=== PATIENT | female | born 1950 | race Caucasian/White ===

== ENCOUNTER 2017-07-12 20:04 | Observation (INO) ==
--- NOTE | 2017-07-12 20:31 | Emergency Department Note ---
Disposition Clinical Impression: Syncope due to orthostatic hypotension Disposition: Admitted As Inpatient Condition: Fair Referrals: NONE,PCP [Primary Care Provider] - Time of Disposition: 00:22 Syncope HPI - General Chief Complaint: ED Syncope Stated Complaint: syncopy Time Seen by Provider: 07/12/17 20:11 Source: patient, EMS Mode of arrival: EMS Limitations: no limitations Nursing Notes Reviewed: Yes Vital Signs Reviewed: Yes - History of Present Illness HPI Narrative: 66-year-old female presents to the emergency department for syncopal event. Patient has had recent surgical history were partially through weeks ago she was diagnosed with a mass on her ovary and was sent to the [facility]. While there at the [facility] they found a hernia that had a volvulus. She was unstable at that time said to rehydrate her after that they did do surgery to fix the hernia and fix a volvulus. Patient had no bowel removed. This is done laparoscopically and she did well after this. She is now set up to have the ovarian mass removed approximately 1 month. Patient is doing well otherwise. Today she was at her doctor's appointment and while there and when they were on their way home he stopped and played [address] while at [address] her said that she looked over at him and said headache, feeling well To go home he went to get the coats and he came back he noticed that she was unconscious. Said they did check and she did have a pulse but she was not responsive. This occurred for approximately 3 minutes when else and she woke up and was completely responsive at that time. She was alert and oriented at that time. Patient stated she had no pain or any events leading up to this. She was not standing when this occurs she was sitting in her chair she did not fall and hit her head as her said he caught her when he noticed this. This Elena removed to the ground. She had no nausea or vomiting prior to this she said she felt a little dizzy leading up to about the only symptom she had now she says she feels back to normal maybe a mildly weak but otherwise feels back to her normal self. Patient says that she has no further complaints of this time including no fevers , chills, nausea, vomiting, abdominal pain, chest pain, shortness of breath, neck pain, back pain, blurry vision gone. She landed on the arms or legs and generalized weakness, pain with urination, change in bowel movements. - Related Data Previous Rx's Medication Instructions Recorded Loratadine/Pseudophed (12 HR) 1 each PO BID #20 tab.er.12h 07/08/16 [Claritin D (12HR)] Azithromycin [Azithromycin 6-Tab 250 mg PO PER PKG DI #6 tab 06/10/17 Pack] Loratadine [Allergy Relief] 10 mg PO DAILY #30 tablet 06/10/17 Promethazine/Dextromethorphan 5 ml PO Q6HR PRN #120 ml 06/10/17 [Promethazine-Dm Syrup] Allergies Allergy/AdvReac Type Severity Reaction Status Date / Time Penicillins Allergy Rash Verified 07/08/16 14:04 Review of Systems: 10 point review of systems done and negative unless otherwise stated in the history of present illness. All systems ED: reviewed and negative except as stated. Review of Systems: As Per HPI Past Medical History - Past Medical History Attestation: Yes The following information was validated with the patient. Source: patient Medical history: Reports: non-contributory Psychiatric history: Reports: no psych history - Social History Smoking Status: Never smoker Smokeless Tobacco Status: No Alcohol use: Reports: none Drug use: Reports: none Physical Exam - General Limitations: no limitations General appearance: alert, in no apparent distress - Head Head exam: atraumatic, normocephalic, normal inspection - Eye Eye exam: Present: normal appearance, PERRL, EOMI - ENT ENT exam: normal exam, normal oropharynx, mucous membranes moist - Neck Neck exam: Present: normal inspection, full ROM, trachea midline - Chest Chest inspection: Present: normal inspection, symmetric chest wall rise - Respiratory Respiratory exam: Present: normal lung sounds bilaterally - Cardiovascular Cardiovascular exam: Present: regular rate, normal rhythm, normal heart sounds - Abdominal Exam Abdominal exam: Present: soft, Non-Tender, normal bowel sounds, other (5 surgical scars to seem to be healing well and no erythema or leakage coming from the surgical sites. They all look to be healing at this time.). Absent: tenderness, distention, guarding, rebound, rigidity - Extremities Exam Extremities exam: Present: normal inspection, full ROM. Absent: tenderness, pedal edema - Expanded Lower Extremity Exam Neurovascular/Tendon exam: Present: normal capillary refill. Absent: pulse deficit, motor deficit, sensory deficit, tendon deficit - Back Exam Back exam: Present: normal inspection, full ROM. Absent: tenderness, CVA tenderness (R), CVA tenderness (L) - Neurological Exam Neurological exam: Present: alert, oriented X3. Absent: CN II-XII intact, motor sensory deficit - Expanded Neurological Exam Patient oriented to: Present: person, place, time Speech: Present: fluid speech Coma Scale Eye Opening: Spontaneous Coma Scale Motor Response: Obeys Commands Coma Scale Verbal Response: Oriented Coma Scale Total: 15 - Skin Skin exam: Present: warm, dry, intact, normal color Course Course Narrative: 66-year-old female presents to the emergency department complaining of syncope. We will do basic cardiac evaluation including CBC, CMP, mag, troponin, blood glucose as well as EKG and chest x-ray. She is getting IV fluids from EMS. She is doing well at this time she does not need anything further. Disposition pending results. We will also order a CT head to be sure there is no intracranial abnormalities. That could be causing the syncopal episode. - Reevaluation(s) Reevaluation #1: Patient's labs came back showing a decreased hemoglobin to 9 from partially one month ago where was 16. Due to the very quickly decrease in her hemoglobin as well as her recent abdominal surgery we felt that CT of the abdomen and pelvis without contrast would be warranted. We will also do Hemoccult on her. Due to the decrease in hemoglobin and her syncopal event admission is most likely going to be the disposition. I spoke with patient and they both agree with this plan. Time: 23:04 Vital Signs Temperature 98.9 F 07/12/17 20:22 Pulse Rate 94 07/12/17 20:22 Respiratory Rate 18 07/12/17 20:22 Blood Pressure 96/69 07/12/17 20:22 O2 Sat by Pulse Oximetry 96 07/12/17 20:22 Temperature 98.9 F 07/12/17 20:22 Pulse Rate 106 07/12/17 23:55 Respiratory Rate 18 07/12/17 23:55 Blood Pressure 110/55 07/12/17 23:55 O2 Sat by Pulse Oximetry 99 07/12/17 23:55 Oxygen Delivery Oxygen Delivery Room Air Syncope - [facility] Narrative Medical decision making narrative: 66-year-old female presenting to emergency department after a syncopal event. Patient states that this never occurred to her before. EKG showed no acute findings or any signs of ischemia or arrhythmias. All labs came back normal except for a decrease in her hemoglobin to 9 where one month ago it was 16. Due to patient's recent abdominal surgery we did get a Hemoccult which came back negative. Abdominal exam had no acute findings other than her ovarian mass which is artery known. CT head came back with no acute other maladies. Due to patient's drop in hemoglobin as well as recent admission to the hospital and surgery we felt that admission to the hospital here would be warranted as she would need further evaluation and monitoring due to the syncopal event. This could be due to the drop in hemoglobin or potential bleed somewhere so we recommended serial hemoglobin exams. I spoke with the hospitalist Dr. Remy who agreed to admit the patient to their service. Patient is admitted in stable condition. Chest X-Ray 07/12/17 20:25 IMPRESSION: Interval development of patchy opacity within the lungs bilaterally, greatest within the left midlung. Multifocal pneumonia is primarily considered. That should be followed to resolution. Re- demonstration of a hiatal hernia. D/ / Brandt Blackburn MD / Brandt Blackburn MD Interpreting Provider: Brandt Blackburn MD Head CT 07/12/17 21:46 IMPRESSION: No acute intracranial abnormality. D/ / Louie Torrez MD / Louie Torrez MD Interpreting Provider: Louie Torrez MD Abdomen/Pelvis CT 07/12/17 22:55 IMPRESSION: 1. No acute process in the abdomen or pelvis. 2. Cholelithiasis with no scan evidence for acute cholecystitis. 3. Small left pleural effusion with bibasilar atelectasis status post Danilo fundoplication. 4. Complex cystic and solid pelvic mass again demonstrated. D/ / Issac Dale MD / Issac Dale MD Interpreting Provider: Issac Dale MD - Medical Records Medical records reviewed: Yes I reviewed the patient's medical records. - Lab Data Lab results reviewed: Yes I reviewed the patient's lab results. Result diagrams: 07/12/17 22:07 07/12/17 20:25 Lab Results 07/12/17 07/12/17 07/12/17 Range/Units 20:25 20:39 21:05 WBC (4.3-11.1) K/mcL RBC (3.82-4.97) M/mcL Hgb (11.5-15.4) g/dL Hct (35.3-44.9) % MCV (83.0-100.0) fL MCH (28.0-33.3) pg MCHC (31.6-35.5) g/dL RDW (11.5-14.5) % Plt Count (140-400) K/mcL MPV (9.4-12.4) fL Immature Gran % (0-4) % Seg Neutrophils % % Lymphocytes % % Monocytes % % Eosinophils % % Basophils % % Neutrophils # (1.6-8.9) K/mcL Lymphocytes # (0.6-4.6) K/mcL Monocytes # (0.0-1.3) K/mcL Eosinophils # (0.0-0.6) K/mcL Basophils # (0.0-0.2) K/mcL PT (9.4-12.1) Seconds INR APTT (26.0-36.0) Seconds Sodium 138 (136-145) mEq/L Potassium 3.9 (3.5-5.1) mEq/L Chloride 108 H (98-107) mEq/L Carbon Dioxide 21 L (23-29) mEq/L BUN 14 (8-23) mg/dL Creatinine 0.76 (0.60-1.20) mg/dL Est GFR ( Amer) > 60 (> 60) Est GFR (Non-Af Amer) > 60 (> 60) BUN/Creatinine Ratio 18 (6-26) Glucose 109 H (70-105) mg/dL POC Glucose 147 H (58-89) Calculated Osmolality 287 (280-300) Calcium 8.6 (8.6-10.3) mg/dL Magnesium 2.0 (1.6-2.6) mg/dL Total Bilirubin 0.3 (0.3-1.0) mg/dL AST 17 (13-39) Units/L ALT 8 (7-52) Units/L Alkaline Phosphatase 94 (34-104) Units/L Troponin I < 0.03 (< 0.04) ng/mL Serum Total Protein 6.0 L (6.4-8.9) g/dL Albumin 3.1 L (3.5-5.7) g/dL Globulin 2.9 (2.4-3.5) g/dL Albumin/Globulin Ratio 1.1 (1.1-2.2) Specimen Rejected Clotted 07/12/17 07/12/17 Range/Units 22:07 22:07 WBC 10.6 (4.3-11.1) K/mcL RBC 3.49 L (3.82-4.97) M/mcL Hgb 9.7 L (11.5-15.4) g/dL Hct 31.2 L (35.3-44.9) % MCV 89.4 (83.0-100.0) fL MCH 27.8 L (28.0-33.3) pg MCHC 31.1 L (31.6-35.5) g/dL RDW 14.9 H (11.5-14.5) % Plt Count 397 (140-400) K/mcL MPV 9.9 (9.4-12.4) fL Immature Gran % 0.5 (0-4) % Seg Neutrophils % 83.6 % Lymphocytes % 9.2 % Monocytes % 5.9 % Eosinophils % 0.4 % Basophils % 0.4 % Neutrophils # 8.8 (1.6-8.9) K/mcL Lymphocytes # 1.0 (0.6-4.6) K/mcL Monocytes # 0.6 (0.0-1.3) K/mcL Eosinophils # 0.0 (0.0-0.6) K/mcL Basophils # 0.0 (0.0-0.2) K/mcL PT 12.0 (9.4-12.1) Seconds INR 1.1 APTT 33.1 (26.0-36.0) Seconds Sodium (136-145) mEq/L Potassium (3.5-5.1) mEq/L Chloride (98-107) mEq/L Carbon Dioxide (23-29) mEq/L BUN (8-23) mg/dL Creatinine (0.60-1.20) mg/dL Est GFR ( Amer) (> 60) Est GFR (Non-Af Amer) (> 60) BUN/Creatinine Ratio (6-26) Glucose (70-105) mg/dL POC Glucose (58-89) Calculated Osmolality (280-300) Calcium (8.6-10.3) mg/dL Magnesium (1.6-2.6) mg/dL Total Bilirubin (0.3-1.0) mg/dL AST (13-39) Units/L ALT (7-52) Units/L Alkaline Phosphatase (34-104) Units/L Troponin I (< 0.04) ng/mL Serum Total Protein (6.4-8.9) g/dL Albumin (3.5-5.7) g/dL Globulin (2.4-3.5) g/dL Albumin/Globulin Ratio (1.1-2.2) Specimen Rejected - Radiology Data Radiology results reviewed: Yes I reviewed the patient's radiology results. - EKG Data EKG attestation: Yes I reviewed and interpreted this EKG. EKG results narrative: EKG done at 2031 review otherwise healthy attending shows sinus rhythm at a rate of 96, TX 125, QRS 101, QTC 423 with a normal axis. There is no acute ST changes no acute T-wave changes noted signs of ischemia. No signs of any heart strain, hypertrophy or heart block. No signs of WPW/Brugada syndrome. Overall this is a normal EKG there is no old one to compare to. Attestation Statement - Attestation Attestation: I, Tony Carmichael DO, examined this patient [id number] and my medical decision-making was reviewed with Dr. Brady Victor, Resident Physician. I agree with the documented findings, disposition and treatment plan as described except to the extent set forth below. Please see my progress notes for details. 66-year-old female presents emergency room with complaint of a syncopal event. Patient was sitting today playing bingo when she completely passed out. She denied any preceding symptoms that she noticed at that time. Of note, she does have a significant history of recent surgery for hiatal hernia repair as well as a large ovarian mass. Patient was seen and evaluated and treated up at [facility]. Since being discharged home several days with the patient has been doing well. She was an outpatient evaluation by obstetrics and registered occupational therapist today. They are scheduling her for an outpatient treatment of the mass. Patient otherwise denied any other symptoms issues today. No new medications. Denied any fevers chills chest pain shortness of breath headaches vision changes nausea vomiting or diarrhea. Patient has no specific history of syncopal events. No cardiac arrhythmias or history of cardiac related illness. Patient was screening evaluation for syncope noted at this time. Patient went EKG CT of the head considering his 6 hour timeframe. She did not have any signs of a thunderclap headache or anything on those lines. Vital signs otherwise unremarkable this point except for hypotension. When she was found by EMS her blood pressure was 60/40. Patient provided with fluids and transit. She is alert she is oriented she speaks in full sentences. She has no neurologic deficits or symptoms at this point. Lungs are clear heart is regular abdomen is soft. Surgical incision sites appear to be stable with no signs of purulence or redness or cellulitis. Patient is clinically stable at this point. Screening evaluation for syncopal event will be reviewed and discussed. Patient was treated with Atrovent abnormalities and dehydration at the outside facility. Disposition will be determined once the workup is completed. See detailed documentation of the physical exam, medical intervention, medical decision-making and disposition in the resident physician' s note. No critical care participation treatment course at this time. 2325 Patient's Hemoccult was negative. CT imaging of the abdomen does not show any acute pathology. Unknown etiology to the anemia here today. Patient otherwise is negative syncopal workup in the emergency room. EKG was unremarkable. Patient will be admitted at this time for syncopal evaluation with possible source being the anemia. Patient was hypotensive on arrival by EMS with normal sinus. Patient admitted this time for definitive evaluation and management.
[2017-07-12 21:48] LABS: Troponin I < 0.03 ng/mL (< 0.04)
[2017-07-12 21:50] LABS: Alanine Aminotransferase 8 Units/L (7-52); Albumin 3.1 g/dL (3.5-5.7); Albumin/Globulin Ratio 1.1 (1.1-2.2); Alkaline Phosphatase 94 Units/L (34-104); Aspartate Amino Transferase 17 Units/L (13-39); BUN/Creatinine Ratio 18 (6-26); Bilirubin,Total 0.3 mg/dL (0.3-1.0); Blood Urea Nitrogen 14 mg/dL (8-23); Calcium 8.6 mg/dL (8.6-10.3); Carbon Dioxide 21 mEq/L (23-29); Chloride 108 mEq/L (98-107); Globulin 2.9 g/dL (2.4-3.5); Glucose 109 mg/dL (70-105); Osmolality,Calculated 287 (280-300); Potassium 3.9 mEq/L (3.5-5.1); Sodium 138 mEq/L (136-145); eGFR For African Americans > 60 (> 60); eGFR For Non-African Americans > 60 (> 60)
[2017-07-12 22:20] LABS: Basophils % 0.4 %; Eosinophils % 0.4 %; Hematocrit 31.2 % (35.3-44.9); Hemoglobin 9.7 g/dL (11.5-15.4); Immature Granulocytes % 0.5 % (0-4); Lymphocytes % 9.2 %; Mean Corpuscular HGB Conc 31.1 g/dL (31.6-35.5); Mean Corpuscular Hemoglobin 27.8 pg (28.0-33.3); Mean Corpuscular Volume 89.4 fL (83.0-100.0); Mean Platelet Volume 9.9 fL (9.4-12.4); Monocytes # 0.6 K/mcL (0.0-1.3); Monocytes % 5.9 %; Neutrophils # 8.8 K/mcL (1.6-8.9); Platelet Count 397 K/mcL (140-400); Red Blood Count 3.49 M/mcL (3.82-4.97); Red Cell Distribution Width 14.9 % (11.5-14.5); Segmented Neutrophils % 83.6 %
[2017-07-12 22:26] LABS: INR 1.1
[2017-07-12 22:29] LABS: Activated Partial Thrombo Time 33.1 Seconds (26.0-36.0)
--- NOTE | 2017-07-13 00:21 | Internal Med History&Physical ---
Date of Encounter: 07/13/17 Time of Encounter: 00:18 Assessment and Plan (1) Syncope Current visit: Yes Status: Acute CT head, A/P w/o acute findings CXR with possible PNA ??? but clinically does not appear to have PNA Check CT chest w/o contrast Further management pending in hospital clinical course and CT chest Tele monitoring, orthostat (although it occured at rest), carotid doppler Qualifiers: Syncope type: unspecified Qualified Code(s): R55 - Syncope and collapse (2) Anemia Current visit: Yes Status: Acute mild anemia in 9 but was in 16 1 month ago. Admitted for observation Could be heme-concentrated at that time Recheck H&H in the morning Send nutritional studies, retic, bili screen Qualifiers: Anemia type: other cause Other causes of anemia: other cause, not classified Qualified Code(s): D64.89 - Other specified anemias (3) Ovarian cystic mass Current visit: Yes Status: Acute pending elective surgery at [facility] soon August 18 Qualifiers: Laterality: unspecified laterality Qualified Code(s): N83.209 - Unspecified ovarian cyst, unspecified side Internal Medicine - H&P: HPI Chief complaint: syncope History of present illness: Ms. Washburn is a 66 year old female who presents with a 3 minute syncope episode with regain of consciousness. Found mild anemia. Admitted for observation Patient had been healthy and is on no medicine. She denies smoking or drinking. A month ago she was transferred to [facility] for evaluation of ovarian mass and was subsequently found to have possible volvulus where she had surgical manipulation. She was discharged with an outpatient follow-up today at [facility] for an elective hysterectomy, oophorectomy on August 18. At about 7:30 PM she was at the [facility] is sitting where she recalled breaking out in sweats before passing out on the table. It was reported that she had a loss of consciousness for 3 minutes with subsequent regain of mental status. There was no post ictal state and she was able to recall events prior to syncope. She was able to move all 4 extremities and felt fine on regain of consciousness. On review of symptoms she denies any vaginal bleeding or GI bleeding symptoms She also further denies any cough progress by symptoms to suggest a pneumonia She denies having any heart troubles or any arrhythmias previously. EKG personally reviewed with rate of 96, normal sinus rhythm CT/CT abd pelvis wo no iv no oral IMPRESSION: 1. No acute process in the abdomen or pelvis. 2. Cholelithiasis with no scan evidence for acute cholecystitis. 3. Small left pleural effusion with bibasilar atelectasis status post Danilo fundoplication. 4. Complex cystic and solid pelvic mass again demonstrated. CT/CT head/brain wo con IMPRESSION: No acute intracranial abnormality. XR/XR chest 1V portable IMPRESSION: Interval development of patchy opacity within the lungs bilaterally, greatest within the left midlung. Multifocal pneumonia is primarily considered. That should be followed to resolution. Re- demonstration of a hiatal hernia. Past Med Surg Social Fam HX - Past Medical History Medical history: non-contributory Psychiatric history: no psych history - Past Surgical History Surgical History: other (Laparoscopic surgery) - Social History Smoking Status: Never smoker Smokeless Tobacco Status: No Alcohol use: none Drug use: none Internal Medicine - H&P: Meds Loratadine/Pseudophed (12 HR) [Claritin D (12HR)] 1 each PO BID #20 tab.er.12h 07/08/16 [Rx] Azithromycin [Azithromycin 6-Tab Pack] 250 mg PO PER PKG DI #6 tab 06/10/17 [Rx] Loratadine [Allergy Relief] 10 mg PO DAILY #30 tablet 06/10/17 [Rx] Promethazine/Dextromethorphan [Promethazine-Dm Syrup] 5 ml PO Q6HR PRN #120 ml 06/10/17 [Rx] 3 Allergy/AdvReac Type Severity Reaction Status Date / Time Penicillins Allergy Rash Verified 07/08/16 14:04 All Systems PM: A 10-system review of systems was performed and is negative for pertinent findings except as documented above in the HPI. Review of systems: ROS 14 point review of systems reviewed as best as possible given presentation. Pertinent positive or negative as per HPI or otherwise reviewed as negative - Constitutional Vitals: Temp Pulse Resp BP Pulse Ox 98.9 F 106 18 110/55 99 07/12/17 20:22 07/12/17 23:55 07/12/17 23:55 07/12/17 23:55 07/12/17 23:55 Exam: General - AAO x 3 Psych - Appropriate affect/speech. No agitation Eyes - CHUNG. Eye lids intact. No scleral icterus Neuro - No gross peripheral or central neuro deficits on inspection Heart - Sinus. RRR. S1 and S2 present. No added HS/murmurs appreciated. No elevated JVD appreciated. Lung - Adequate air entry b/l, No crackles/wheezes appreciated GI - Soft, non-tender. No hepatosplenomegaly/ascites. BS+ - No CVA/suprapubic tenderness or palpable bladder distension Skin - Intact. No rash/petechiae/ecchymosis. Warm extremities Internal Med - H&P Results - Labs CBC & Chem 7: 07/12/17 22:07 07/12/17 20:25
[2017-07-13] MEDS ORDERED: Naloxone 0.4 MG/ML INJ IVP PRN (00:24)
[2017-07-13 07:20] LABS: Basophils % 0.6 %; Bilirubin,Direct 0.2 mg/dL (0.0-0.2); Bilirubin,Indirect 0.2 mg/dL (0.0-1.2); Bilirubin,Total 0.4 mg/dL (0.3-1.0); Eosinophils # 0.1 K/mcL (0.0-0.6); Eosinophils % 0.7 %; Hematocrit 26.3 % (35.3-44.9); Hemoglobin 8.3 g/dL (11.5-15.4); Immature Granulocytes % 0.3 % (0-4); Immature Reticulocyte % 14.8 % (11.0-38.0); Lymphocytes # 1.3 K/mcL (0.6-4.6); Lymphocytes % 18.4 %; Mean Corpuscular HGB Conc 31.6 g/dL (31.6-35.5); Mean Corpuscular Hemoglobin 27.9 pg (28.0-33.3); Mean Corpuscular Volume 88.3 fL (83.0-100.0); Mean Platelet Volume 10.4 fL (9.4-12.4); Monocytes # 0.6 K/mcL (0.0-1.3); Monocytes % 8.1 %; Neutrophils # 5.1 K/mcL (1.6-8.9); Platelet Count 370 K/mcL (140-400); Red Blood Count 2.98 M/mcL (3.82-4.97); Retculocyte # 0.04 M/mcL (0.05-0.10); Reticulocyte % 1.5 % (1.6-2.8); Segmented Neutrophils % 71.9 %
[2017-07-13 07:21] LABS: % Iron Saturation 8 % (15-50); Ferritin 134 ng/ml (10-120); Iron 22 mcg/dL (50-170); Transferrin 187 mg/dL (203-362)
[2017-07-13 07:41] LABS: Folate 13.2 ng/mL (3.0-16.0)
[2017-07-13] MEDS ORDERED: Acetaminophen 325 MG TABLET PO PRN (11:19)
[2017-07-13] MEDS: 0.9 % Sodium Chloride 1,000 ML IVC SCH (17:14)
--- NOTE | 2017-07-13 20:04 | Electrocardiograph Report ---
[address] [address] Test Date: 2017-07-12 Pat Name: Sara Washburn Department: 103 Room: 3B46 Gender: F [employer] P[employer] Layer: JODY : 1950 Requested By: Brady Victor Order Number: [id number] Reading MD: Cristhian Olvera MD Measurements Intervals Kite Rate: 96 P: 55 VT: 125 QRS: 38 QRSD: 101 T: -13 QT: 370 QTc: 423 Interpretive Statements SINUS RHYTHM BASELINE ARTIFACT Electronically Signed On 07-13-2017 20:03:10 EDT by Cristhian Olvera MD
[2017-07-13 20:42] LABS: Hemoglobin 8.3 g/dL (11.5-15.4)
[2017-07-14 05:05] LABS: Hematocrit 27.2 % (35.3-44.9); Hemoglobin 8.3 g/dL (11.5-15.4); Mean Corpuscular HGB Conc 30.5 g/dL (31.6-35.5); Mean Corpuscular Hemoglobin 27.5 pg (28.0-33.3); Mean Corpuscular Volume 90.1 fL (83.0-100.0); Mean Platelet Volume 10.8 fL (9.4-12.4); Platelet Count 337 K/mcL (140-400); Red Blood Count 3.02 M/mcL (3.82-4.97); Red Cell Distribution Width 15.1 % (11.5-14.5)
[2017-07-14 05:21] LABS: BUN/Creatinine Ratio 13 (6-26); Blood Urea Nitrogen 8 mg/dL (8-23); Calcium 8.6 mg/dL (8.6-10.3); Carbon Dioxide 25 mEq/L (23-29); Chloride 110 mEq/L (98-107); Glucose 88 mg/dL (70-105); Osmolality,Calculated 290 (280-300); Potassium 3.8 mEq/L (3.5-5.1); Sodium 141 mEq/L (136-145); eGFR For African Americans > 60 (> 60); eGFR For Non-African Americans > 60 (> 60)
[2017-07-14] MEDS: 0.9 % Sodium Chloride 1,000 ML IVC SCH ×2 (05:49→11:36)
[2017-07-14] MEDS ORDERED: Levofloxacin 750 MG/150 ML 750 MG/150 ML BAG IVPB SCH (07:40)
--- NOTE | 2017-07-14 08:43 | Discharge Summary ---
- NOTES TO OUTPATIENT PROVIDER Notes to Outpatient Provider: Will require CT scan of the chest in 6 weeks to assess resolution of multifocal pneumonia, would prefer this over just a chest x -ray due to minimal symptoms Orders not resulted at time of discharge: Pending orders 07/13/17 11:20 Occult Blood,Stool [BF] Routine Date of Encounter: 07/14/17 Time of Encounter: 08:41 - Discharge Diagnosis (1) Multifocal pneumonia Priority: Primary Status: Acute Comments: Syncope possibly secondary to multifocal pneumonia in combination with blood loss anemia/post surgical and dehydration (2) Anemia Priority: Primary Status: Acute Comments: Blood loss anemia/post surgical Qualifiers: Anemia type: other cause Other causes of anemia: other cause, not classified Qualified Code(s): D64.89 - Other specified anemias (3) Syncope Priority: Primary Status: Acute Qualifiers: Syncope type: unspecified Qualified Code(s): R55 - Syncope and collapse (4) Ovarian cystic mass Priority: Secondary Status: Acute Qualifiers: Laterality: unspecified laterality Qualified Code(s): N83.209 - Unspecified ovarian cyst, unspecified side Hospital course: Ms. Washburn is a 66 year old female with past medical history of recent Niesen fundoplication who presented with a 3 minute syncope episode with regain of consciousness. Found mild anemia. Admitted for observation Patient had been healthy and is on no medicine. She denies smoking or drinking. A month ago she was transferred to [facility] for evaluation of ovarian mass and was subsequently found to have possible volvulus where she had surgical manipulation. She was discharged with an outpatient follow-up at [facility] for an elective hysterectomy, oophorectomy on August 18. At about 7:30 PM she was at the [facility] [place] is sitting where she recalled breaking out in sweats before passing out on the table. It was reported that she had a loss of consciousness for 3 minutes with subsequent regain of mental status. There was no post ictal state and she was able to recall events prior to syncope. She was able to move all 4 extremities and felt fine on regain of consciousness. The patient was found to be anemic, her hemoglobin was 16.6 on June 12 which she mentions that she was very dehydrated, upon admission her hemoglobin was 9.7 and then dropped to 8.3, she has not had any evidence of bleeding, no bowel movements to test for Hemoccult. No further episodes of syncope. On review of symptoms she denies any vaginal bleeding or GI bleeding symptoms CT scan of the abdomen showed: 1. No acute process in the abdomen or pelvis. 2. Cholelithiasis with no scan evidence for acute cholecystitis. 3. Small left pleural effusion with bibasilar atelectasis status post Danilo fundoplication. 4. Complex cystic and solid pelvic mass again demonstrated. CT scan of the chest showed:Multifocal bilateral heterogeneous, ground-glass, and nodular infiltrate, suggestive of multifocal pneumonia. Additional more focal consolidation is demonstrated at the left lower lobe with associated small partially loculated left pleural effusion. The patient was started on Levaquin, she is a stable to be discharged. The patient was recommended to follow up with her primary care physician to have another CT scan within the next 6 weeks to assess resolution of the opacities on her lungs - Time Spent with Patient Total time spent providing and/or coordinating discharge services: Greater than 30 minutes (40 min) - Discharge Medications Prescriptions: levoFLOXacin [Levaquin] 750 mg PO DAILY #6 tablet Omeprazole [PriLOSEC] 40 mg PO DAILY@0630 #30 capsule. Home Medications: Ondansetron HCl [Zofran] 4 mg PO Q8H PRN 07/13/17 [History] Sennosides [Senokot] 8.6 mg PO DAILY PRN 07/13/17 [History] Omeprazole [PriLOSEC] 40 mg PO DAILY@0630 #30 capsule. 07/14/17 [Rx] levoFLOXacin [Levaquin] 750 mg PO DAILY #6 tablet 07/14/17 [Rx] Allergies/Adverse Reactions: 3 Allergy/AdvReac Type Severity Reaction Status Date / Time Penicillins Allergy Rash Verified 07/08/16 14:04 Date of admission: 07/13/17 00:01 Primary care physician: PCP NONE - Constitutional Vitals: Temp Pulse Resp BP Pulse Ox 98.4 F 86 18 122/72 95 07/14/17 07:53 07/14/17 07:53 07/14/17 07:53 07/14/17 07:53 07/14/17 07:53 General appearance: Present: A&O X 3 - Head Head exam: Present: atraumatic, normocephalic - Eye Eye exam: Present: PERRL, conjuntiva pink, sclera anicteric Pupils: Present: PERRL - Neck Neck exam general surgery: Present: supple, trachea midline. Absent: lymphadenopathy - Respiratory Respiratory exam: Present: CTAB. Absent: accessory muscle use, rales, rhonchi, wheezes - Cardiovascular Cardiovascular exam: Present: RRR, +S1, +S2. Absent: diastolic murmur, gallop, rubs, systolic murmur - GI/Abdominal GI/Abdominal exam: Present: normal bowel sounds, soft, no peritoneal signs. Absent: distended, tenderness - Extremities Exam Extremities exam: Present: warm, radial pulses palpable and symmetrical. Absent : calf tenderness, cyanotic, pedal edema - Neurological Exam Neurological exam: Present: CN II-XII intact, oriented X3, no focal deficits. Absent: pronater drift, facial droop, speech deficit - Skin Skin exam: Present: dry, intact - Patient Status Disposition: Home, Self-Care Condition: Good Overall status at discharge: patient is back to baseline - Discharge Instructions Follow Up With: NONE,PCP [Primary Care Provider] - Additional Instructions: Follow-up with primary care physician within the next 7 days. Complete a total of 7 days of Levaquin. Needs to have a CT scan of the chest in 6 weeks - Diet and Activity Activity: increase activity as tolerated Diet: regular diet
[2017-07-14] MEDS: Levofloxacin 750 MG/150 ML 750 MG/150 ML BAG IVPB SCH (08:51)
--- NOTE | 2017-07-14 15:41 | Internal Med Progress Note ---
Date of Encounter: 07/14/17 Time of Encounter: 15:40 - Assessment and plan (1) Multifocal pneumonia Current Visit: Yes Status: Acute Assessment and plan: Syncope possibly secondary to multifocal pneumonia in combination with blood loss anemia/post surgical and dehydration Start Levaquin IV day #1 IV fluids Fall precautions, orthostatics CT scan of the chest showed:Multifocal bilateral heterogeneous, ground-glass, and nodular infiltrate, suggestive of multifocal pneumonia. Additional more focal consolidation is demonstrated at the left lower lobe with associated small partially loculated left pleural effusion. (2) Anemia Current Visit: Yes Status: Acute Assessment and plan: Acute blood loss anemia likely secondary to surgical procedure Had a Danilo fundoplication recently Transfuse 1 unit of blood due to symptomatic anemia Recheck in the morning Qualifiers: Anemia type: other cause Other causes of anemia: other cause, not classified Qualified Code(s): D64.89 - Other specified anemias (3) Syncope Current Visit: Yes Status: Acute Assessment and plan: Possibly secondary to symptomatic anemia and multifocal pneumonia Qualifiers: Syncope type: unspecified Qualified Code(s): R55 - Syncope and collapse (4) Ovarian cystic mass Current Visit: Yes Status: Acute Assessment and plan: Follow-up as an outpatient CT scan of the abdomen showed: 1. No acute process in the abdomen or pelvis. 2. Cholelithiasis with no scan evidence for acute cholecystitis. 3. Small left pleural effusion with bibasilar atelectasis status post Danilo fundoplication. 4. Complex cystic and solid pelvic mass again demonstrated. Qualifiers: Laterality: unspecified laterality Qualified Code(s): N83.209 - Unspecified ovarian cyst, unspecified side - Subjective Interval history: Had another near syncopal episode prior to being discharged, discharge was cancelled. Patient was feeling dizzy, denies any chest pain, no abdominal pain no dysuria, no fevers or chills, no diarrhea - Constitutional Vitals: Temp Pulse Resp BP Pulse Ox 98.2 F 85 18 119/75 96 07/14/17 14:34 07/14/17 14:34 07/14/17 14:34 07/14/17 14:34 07/14/17 14:34 General appearance: Present: A&O X 3 Exam: Head Head exam: Present: atraumatic, normocephalic - Eye Eye exam: Present: PERRL, conjuntiva pink, sclera anicteric Pupils: Present: PERRL - Neck Neck exam general surgery: Present: supple, trachea midline. Absent: lymphadenopathy - Respiratory Respiratory exam: Present: CTAB. Absent: accessory muscle use, rales, rhonchi, wheezes - Cardiovascular Cardiovascular exam: Present: RRR, +S1, +S2. Absent: diastolic murmur, gallop, rubs, systolic murmur - GI/Abdominal GI/Abdominal exam: Present: normal bowel sounds, soft, no peritoneal signs. Absent: distended, tenderness - Extremities Exam Extremities exam: Present: warm, radial pulses palpable and symmetrical. Absent : calf tenderness, cyanotic, pedal edema - Neurological Exam Neurological exam: Present: CN II-XII intact, oriented X3, no focal deficits. Absent: pronater drift, facial droop, speech deficit - Skin Skin exam: Present: dry, intact Internal Medicine: Result - Labs CBC & Chem 7: 07/14/17 03:57 07/14/17 03:57 Labs: Short CBC 07/13/17 07/14/17 Range/Units 20:15 03:57 WBC 5.3 (4.3-11.1) K/mcL Hgb 8.3 L 8.3 L (11.5-15.4) g/dL Hct 27.0 L 27.2 L (35.3-44.9) % Plt Count 337 (140-400) K/mcL [facility] 07/14/17 03:57 Sodium 141 Potassium 3.8 Chloride 110 H Carbon Dioxide 25 BUN 8 Creatinine 0.61 Glucose 88 Calcium 8.6 - ABG Interpretation ABG results: PT/INR, D-dimer PT 12.0 Seconds (9.4-12.1) 07/12/17 22:07 Consult Discharge Plan - Plan Instructions: Syncope (DC), Anemia (GEN), Pneumonia (DC) Additional Instructions: Follow-up with primary care physician within the next 7 days. Complete a total of 7 days of Levaquin. Needs to have a CT scan of the chest in 6 weeks Referrals: Ryan Soto Jr, MD [Partnered Physician] - NONE,PCP [Primary Care Provider] - Prescriptions: levoFLOXacin [Levaquin] 750 mg PO DAILY #6 tablet Omeprazole [PriLOSEC] 40 mg PO DAILY@0630 #30 capsule.
[2017-07-14] MEDS ORDERED: 0.9 % Sodium Chloride 250 ML ONE (18:37)
[2017-07-14] MEDS: Ondansetron 4 MG/2 ML VIAL IVP PRN (19:33)
[2017-07-14 23:33] LABS: Hematocrit 31.5 % (35.3-44.9); Hemoglobin 9.9 g/dL (11.5-15.4)
[2017-07-15 04:42] LABS: Hematocrit 30.1 % (35.3-44.9); Hemoglobin 9.7 g/dL (11.5-15.4); Mean Corpuscular HGB Conc 32.2 g/dL (31.6-35.5); Mean Corpuscular Volume 86.7 fL (83.0-100.0); Mean Platelet Volume 9.9 fL (9.4-12.4); Platelet Count 309 K/mcL (140-400); Red Blood Count 3.47 M/mcL (3.82-4.97); Red Cell Distribution Width 15.2 % (11.5-14.5)
[2017-07-15 04:50] LABS: BUN/Creatinine Ratio 8 (6-26); Blood Urea Nitrogen 5 mg/dL (8-23); Calcium 8.8 mg/dL (8.6-10.3); Carbon Dioxide 26 mEq/L (23-29); Chloride 110 mEq/L (98-107); Glucose 91 mg/dL (70-105); Osmolality,Calculated 287 (280-300); Potassium 3.8 mEq/L (3.5-5.1); Sodium 140 mEq/L (136-145); eGFR For African Americans > 60 (> 60); eGFR For Non-African Americans > 60 (> 60)
[2017-07-15] MEDS: 0.9 % Sodium Chloride 1,000 ML IVC SCH (05:48)
--- NOTE | 2017-07-15 08:31 | Internal Med Progress Note ---
Date of Encounter: 07/15/17 Time of Encounter: 08:30 - Assessment and plan (1) Multifocal pneumonia Current Visit: Yes Status: Acute Assessment and plan: Syncope possibly secondary to multifocal pneumonia in combination with blood loss anemia/post surgical and dehydration Continue Levaquin IV day #2 IV fluids Fall precautions, orthostatics were normal CT scan of the chest showed:Multifocal bilateral heterogeneous, ground-glass, and nodular infiltrate, suggestive of multifocal pneumonia. Additional more focal consolidation is demonstrated at the left lower lobe with associated small partially loculated left pleural effusion. Condition discharge later today if not symptomatic (2) Anemia Current Visit: Yes Status: Acute Assessment and plan: Acute blood loss anemia likely secondary to surgical procedure Had a Danilo fundoplication recently Transfused 1 unit of blood due to symptomatic anemia Hemoglobin is 9.7 today Qualifiers: Anemia type: other cause Other causes of anemia: other cause, not classified Qualified Code(s): D64.89 - Other specified anemias (3) Syncope Current Visit: Yes Status: Acute Assessment and plan: Possibly secondary to symptomatic anemia and multifocal pneumonia Qualifiers: Syncope type: unspecified Qualified Code(s): R55 - Syncope and collapse (4) Ovarian cystic mass Current Visit: Yes Status: Acute Assessment and plan: Follow-up as an outpatient CT scan of the abdomen showed: 1. No acute process in the abdomen or pelvis. 2. Cholelithiasis with no scan evidence for acute cholecystitis. 3. Small left pleural effusion with bibasilar atelectasis status post Danilo fundoplication. 4. Complex cystic and solid pelvic mass again demonstrated. Qualifiers: Laterality: unspecified laterality Qualified Code(s): N83.209 - Unspecified ovarian cyst, unspecified side - Subjective Interval history: Has no complaints today Had another near syncopal episode prior to being discharged, discharge was cancelled on 07/14/17. Patient was feeling dizzy, denies any chest pain, no abdominal pain no dysuria, no fevers or chills, no diarrhea. - Constitutional Vitals: Temp Pulse Resp BP Pulse Ox 97.9 F 80 20 116/72 97 07/15/17 07:04 07/15/17 07:04 07/15/17 07:04 07/15/17 07:04 07/15/17 07:04 General appearance: Present: A&O X 3 - Head Head exam: Present: atraumatic, normocephalic - Eye Eye exam: Present: PERRL, conjuntiva pink, sclera anicteric Pupils: Present: PERRL - Neck Neck exam general surgery: Present: supple, trachea midline. Absent: lymphadenopathy - Respiratory Respiratory exam: Present: decreased breath sounds, CTAB. Absent: accessory muscle use, rales, rhonchi, wheezes - Cardiovascular Cardiovascular exam: Present: RRR, +S1, +S2. Absent: diastolic murmur, gallop, rubs, systolic murmur - GI/Abdominal GI/Abdominal exam: Present: normal bowel sounds, soft, no peritoneal signs. Absent: distended, tenderness - Extremities Exam Extremities exam: Present: warm, radial pulses palpable and symmetrical. Absent : calf tenderness, cyanotic, pedal edema - Neurological Exam Neurological exam: Present: CN II-XII intact, oriented X3, no focal deficits. Absent: pronater drift, facial droop, speech deficit - Skin Skin exam: Present: dry, intact Internal Medicine: Result - Labs CBC & Chem 7: 07/15/17 04:14 07/15/17 04:14 Labs: Short CBC 07/14/17 07/15/17 Range/Units 23:20 04:14 WBC 5.3 (4.3-11.1) K/mcL Hgb 9.9 L D 9.7 L (11.5-15.4) g/dL Hct 31.5 L 30.1 L (35.3-44.9) % Plt Count 309 (140-400) K/mcL [facility] 07/15/17 04:14 Sodium 140 Potassium 3.8 Chloride 110 H Carbon Dioxide 26 BUN 5 L Creatinine 0.63 Glucose 91 Calcium 8.8 - ABG Interpretation ABG results: PT/INR, D-dimer PT 12.0 Seconds (9.4-12.1) 07/12/17 22:07 Consult Discharge Plan - Plan Instructions: Syncope (DC), Anemia (GEN), Pneumonia (DC) Additional Instructions: Follow-up with primary care physician within the next 7 days. Complete a total of 7 days of Levaquin. Needs to have a CT scan of the chest in 6 weeks Referrals: Ryan Soto Jr, MD [Partnered Physician] - NONE,PCP [Primary Care Provider] - Prescriptions: Ondansetron ODT [Zofran ODT] 4 mg SL Q4HR PRN #40 tab.rapdis PRN Reason: Nausea levoFLOXacin [Levaquin] 750 mg PO DAILY #6 tablet Omeprazole [PriLOSEC] 40 mg PO DAILY@629 #30 capsule.
--- NOTE | 2017-07-15 08:35 | Discharge Summary ---
- NOTES TO OUTPATIENT PROVIDER Notes to Outpatient Provider: Will require CT scan of the chest in 4-6 weeks to assess resolution of multifocal pneumonia, would prefer this over just a chest x -ray due to minimal symptoms. May delay pelvic cyst/mass surgery depending on results of CT scan of the chest findings at that time Orders not resulted at time of discharge: Pending orders 07/13/17 11:20 Occult Blood,Stool [BF] Routine Date of Encounter: 07/15/17 Time of Encounter: 08:33 - Discharge Diagnosis (1) Multifocal pneumonia Priority: Primary Status: Acute (2) Anemia Priority: Primary Status: Acute Qualifiers: Anemia type: other cause Other causes of anemia: other cause, not classified Qualified Code(s): D64.89 - Other specified anemias (3) Syncope Priority: Secondary Status: Acute Qualifiers: Syncope type: unspecified Qualified Code(s): R55 - Syncope and collapse (4) Ovarian cystic mass Priority: Secondary Status: Acute Qualifiers: Laterality: unspecified laterality Qualified Code(s): N83.209 - Unspecified ovarian cyst, unspecified side - Time Spent with Patient Total time spent providing and/or coordinating discharge services: - Discharge Medications Prescriptions: Ondansetron ODT [Zofran ODT] 4 mg SL Q4HR PRN #40 tab.rapdis PRN Reason: Nausea levoFLOXacin [Levaquin] 750 mg PO DAILY #6 tablet Omeprazole [PriLOSEC] 40 mg PO DAILY@0630 #30 capsule. Home Medications: Ondansetron HCl [Zofran] 4 mg PO Q8H PRN 07/13/17 [History] Sennosides [Senokot] 8.6 mg PO DAILY PRN 07/13/17 [History] Omeprazole [PriLOSEC] 40 mg PO DAILY@0630 #30 capsule. 07/14/17 [Rx] levoFLOXacin [Levaquin] 750 mg PO DAILY #6 tablet 07/14/17 [Rx] Ondansetron ODT [Zofran ODT] 4 mg SL Q4HR PRN #40 tab.rapdis 07/15/17 [Rx] Allergies/Adverse Reactions: 3 Allergy/AdvReac Type Severity Reaction Status Date / Time Penicillins Allergy Rash Verified 07/08/16 14:04 Date of admission: 07/13/17 00:01 Primary care physician: PCP NONE - Constitutional Vitals: Temp Pulse Resp BP Pulse Ox 97.9 F 80 20 116/72 97 07/15/17 07:04 07/15/17 07:04 07/15/17 07:04 07/15/17 07:04 07/15/17 07:04 General appearance: Present: A&O X 3 - Patient Status Disposition: Home, Self-Care Condition: Good Overall status at discharge: patient is progressing back to baseline - Discharge Instructions Instructions: Syncope (DC), Anemia (GEN), Pneumonia (DC) Follow Up With: Ryan Soto Jr, MD [Partnered Physician] - NONE,PCP [Primary Care Provider] - Additional Instructions: Follow-up with primary care physician within the next 7 days. Complete a total of 7 days of Levaquin. Needs to have a CT scan of the chest in 4-6 weeks - Diet and Activity Diet: regular diet - Attending Attestation Notes to Outpatient Provider: Will require CT scan of the chest in 6 weeks to assess resolution of multifocal pneumonia, would prefer this over just a chest x -ray due to minimal symptoms Orders not resulted at time of discharge: Pending orders 07/13/17 11:20 Occult Blood,Stool [BF] Routine Date of Encounter: 07/14/17 Time of Encounter: 08:41 - Discharge Diagnosis (1) Multifocal pneumonia Priority: Primary Status: Acute Comments: Syncope possibly secondary to multifocal pneumonia in combination with blood loss anemia/post surgical and dehydration (2) Anemia Priority: Primary Status: Acute Comments: Blood loss anemia/post surgical Qualifiers: Anemia type: other cause Other causes of anemia: other cause, not classified Qualified Code(s): D64.89 - Other specified anemias (3) Syncope Priority: Primary Status: Acute Qualifiers: Syncope type: unspecified Qualified Code(s): R55 - Syncope and collapse (4) Ovarian cystic mass Priority: Secondary Status: Acute Qualifiers: Laterality: unspecified laterality Qualified Code(s): N83.209 - Unspecified ovarian cyst, unspecified side Hospital course: Ms. Washburn is a 66 year old female with past medical history of recent Niesen fundoplication who presented with a 3 minute syncope episode with regain of consciousness. Found mild anemia. Admitted for observation Patient had been healthy and is on no medicine. She denies smoking or drinking. A month ago she was transferred to [facility] for evaluation of ovarian mass and was subsequently found to have possible volvulus where she had surgical manipulation. She was discharged with an outpatient follow-up at [facility] for an elective hysterectomy, oophorectomy on August 18. At about 7:30 PM she was at the [facility] [place] is sitting where she recalled breaking out in sweats before passing out on the table. It was reported that she had a loss of consciousness for 3 minutes with subsequent regain of mental status. There was no post ictal state and she was able to recall events prior to syncope. She was able to move all 4 extremities and felt fine on regain of consciousness. The patient was found to be anemic, her hemoglobin was 16.6 on June 12 which she mentions that she was very dehydrated, upon admission her hemoglobin was 9.7 and then dropped to 8.3, she has not had any evidence of bleeding, no bowel movements to test for Hemoccult. No further episodes of syncope. On review of symptoms she denies any vaginal bleeding or GI bleeding symptoms CT scan of the abdomen showed: 1. No acute process in the abdomen or pelvis. 2. Cholelithiasis with no scan evidence for acute cholecystitis. 3. Small left pleural effusion with bibasilar atelectasis status post Danilo fundoplication. 4. Complex cystic and solid pelvic mass again demonstrated. CT scan of the chest showed:Multifocal bilateral heterogeneous, ground-glass, and nodular infiltrate, suggestive of multifocal pneumonia. Additional more focal consolidation is demonstrated at the left lower lobe with associated small partially loculated left pleural effusion. The patient was started on Levaquin, she is a stable to be discharged. The patient was recommended to follow up with her primary care physician to have another CT scan within the next 4-6 weeks to assess resolution of the opacities on her lungs On 07/14/2017 prior to being discharged, the patient experienced another syncopal episode where she started sweating. Orthostatics are normal, she was transfused 1 unit of blood due to symptomatic anemia, her hemoglobin today is 9.7. Risks were discussed with the patient. She will be discharged if she is not symptomatic anymore. - Time Spent with Patient Total time spent providing and/or coordinating discharge services: Greater than 30 minutes (40 min) - Discharge Medications Prescriptions: levoFLOXacin [Levaquin] 750 mg PO DAILY #6 tablet Omeprazole [PriLOSEC] 40 mg PO DAILY@0630 #30 capsule. Home Medications: Ondansetron HCl [Zofran] 4 mg PO Q8H PRN 07/13/17 [History] prescription given Sennosides [Senokot] 8.6 mg PO DAILY PRN 07/13/17 [History] Omeprazole [PriLOSEC] 40 mg PO DAILY@0630 #30 capsule. 07/14/17 [Rx] levoFLOXacin [Levaquin] 750 mg PO DAILY #6 tablet 07/14/17 [Rx] Allergies/Adverse Reactions: 3 Allergy/AdvReac Type Severity Reaction Status Date / Time Penicillins Allergy Rash Verified 07/08/16 14:04 Date of admission: 07/13/17 00:01 General appearance: Present: A&O X 3 - Head Head exam: Present: atraumatic, normocephalic - Eye Eye exam: Present: PERRL, conjuntiva pink, sclera anicteric Pupils: Present: PERRL - Neck Neck exam general surgery: Present: supple, trachea midline. Absent: lymphadenopathy - Respiratory Respiratory exam: Present: CTAB. Absent: accessory muscle use, rales, rhonchi, wheezes - Cardiovascular Cardiovascular exam: Present: RRR, +S1, +S2. Absent: diastolic murmur, gallop, rubs, systolic murmur - GI/Abdominal GI/Abdominal exam: Present: normal bowel sounds, soft, no peritoneal signs. Absent: distended, tenderness - Extremities Exam Extremities exam: Present: warm, radial pulses palpable and symmetrical. Absent : calf tenderness, cyanotic, pedal edema - Neurological Exam Neurological exam: Present: CN II-XII intact, oriented X3, no focal deficits. Absent: pronater drift, facial droop, speech deficit - Skin Skin exam: Present: dry, intact - Patient Status Disposition: Home, Self-Care Condition: Good Overall status at discharge: patient is back to baseline - Discharge Instructions Follow Up With: NONE,PCP [Primary Care Provider] - Additional Instructions: Follow-up with primary care physician within the next 7 days. Complete a total of 7 days of Levaquin. Needs to have a CT scan of the chest in 6 weeks - Diet and Activity Activity: increase activity as tolerated Diet: regular diet
[2017-07-15] MEDS: Ondansetron 4 MG/2 ML VIAL IVP PRN (09:30)
[2017-07-15] MEDS: Levofloxacin 750 MG/150 ML 750 MG/150 ML BAG IVPB SCH (09:30)
[2017-07-15 11:48] VITALS: BP 116/60
== END 2017-07-15 12:23 | disposition home or self-care (01) ==
LOC: EMEROO 20:04 → 3BNU 20:04 → UNDODISOB 07-14 10:57
PROVIDERS: ADMIT Internal Medicine Hematology & Oncology; ATTEND Registered Nurse